=== PATIENT | male | born 1995 | race Caucasian/White ===

== ENCOUNTER 2020-12-10 11:27 | Inpatient (IN) | payer OTHER ==
[~2020-12-10] VITALS: Ht 182.9 cm; Wt 90.0 kg
[2020-12-10] MEDS ORDERED: HOME MED LIST COMPLETE! XX SCH (12:30)
[2020-12-10 12:36] LABS: HEMATOCRIT 43.9 % (42.0-52.0); HEMOGLOBIN 15.4 g/dl (13.5-17.5); MEAN CORPUSCULAR HEMOGLOBIN 29.2 pg (27.0-33.0); MEAN CORPUSCULAR HGB CONC 35.1 g/dl (32.0-36.5); MEAN CORPUSCULAR VOLUME 83.3 fl (80.0-96.0); PLATELET COUNT, AUTOMATED 221 10^3/uL (150-450); RED BLOOD COUNT 5.27 10^6/uL (4.30-6.10); WHITE BLOOD COUNT 6.3 10^3/uL (4.0-10.0)
[2020-12-10 12:53] LABS: AMPHETAMINES LEVEL URINE NEGATIVE (NEGATIVE); BARBITURATES URINE NEGATIVE (NEGATIVE); BENZODIAZEPINES URINE NEGATIVE (NEGATIVE); CANNABINOIDS URINE NEGATIVE (NEGATIVE); COCAINE METABOLITE URINE NEGATIVE (NEGATIVE); METHADONE URINE NEGATIVE (NEGATIVE); OPIATES URINE NEGATIVE (NEGATIVE); PHENCYCLIDINE URINE NEGATIVE (NEGATIVE)
[2020-12-10 13:17] LABS: RSV AMPLIFICATION NEGATIVE (NEGATIVE)
[2020-12-10 13:19] LABS: ACETAMINOPHEN LEVEL < 2.0 UG/ML (10.0-30.0); ALBUMIN 3.8 GM/DL (3.2-5.2); ALT/SGPT 30 U/L (12-78); BILIRUBIN,DIRECT 0.3 MG/DL (0.0-0.2); BLOOD UREA NITROGEN 13 MG/DL (7-18); CARBON DIOXIDE LEVEL 26 MEQ/L (21-32); CHLORIDE LEVEL 108 MEQ/L (98-107); ETHYL ALCOHOL (ETHANOL) < 0.003 % (0.000-0.010); GLOMERULAR FILTRATION RATE > 60.0 (>60); GLUCOSE, FASTING 92 MG/DL (70-100); POTASSIUM SERUM 4.2 MEQ/L (3.5-5.1); SALICYLATE LEVEL < 1.7 MG/DL (5.0-30.0); SODIUM LEVEL 140 MEQ/L (136-145); THYROID STIMULATING HORMONE 0.757 uIU/ML (0.358-3.740); TOTAL PROTEIN 7.3 GM/DL (6.4-8.2)
[2020-12-10] MEDS ORDERED: hydrOXYzine 50 MG TAB PO PRN (16:05)
[2020-12-10] MEDS ORDERED: MOM 30ML SUSPENSION UDC PO PRN (16:05)
[2020-12-10] MEDS ORDERED: traZODone 50 MG TAB PO PRN (16:05)
[2020-12-10] MEDS ORDERED: MAALOX 30 ML SUSP *UDC PO PRN (16:05)
[2020-12-10] MEDS ORDERED: ACETAMINOPHEN TAB 650MG DOSE (2X325MG) PO PRN (16:05)
[2020-12-10] MEDS ORDERED: OLANZapine 5 MG TAB PO PRN (16:05)
[2020-12-10 17:01] VITALS: BP 125/77
[2020-12-11 07:07] VITALS: BP 124/79
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
[2020-12-11] MEDS ORDERED: TRAZ-252 PO (11:54)
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
== END 2020-12-11 15:04 | disposition home or self-care (01) | DRG 882 ==
LOC: M ED 11:27 → M ED INP 16:02 → M PSY 17:16
PROVIDERS: ADMIT Student in an Organized Health Care Education/Training Program; ATTEND Student in an Organized Health Care Education/Training Program
DX: F43.20 Adjustment disorder, unspecified (principal); R45.851 Suicidal ideations; Z56.6 Other physical and mental strain related to work; Z62.810 Personal history of physical and sexual abuse in childhood; M25.562 Pain in left knee; Z20.822 Contact with and (suspected) exposure to COVID-19; F32.89 Other specified depressive episodes; G47.00 Insomnia, unspecified